=== PATIENT | female | born 1955 | race Caucasian/White ===

== ENCOUNTER 2017-02-17 09:41 | Day surgery (SDC) | payer BC ==
--- NOTE | 2017-02-17 13:13 | RAD ---
FOUR VIEWS LUMBAR SPINE: Date: 02-17-2017 Comparison: None. History: Back pain. FINDINGS: Minimal mid lumbar spine dextroscoliosis noted. There is a corticated osseous density along the anterior superior margin of the L4 vertebral body whi ch could reflect a lumbus vertebral body. There is multilevel disc space narrowing and anterior osteophyte formation, in the mid lumbar spine. No anterolisthesis of retrolisthesis is noted on flexion, neutral or extension imaging. There is mult ilevel lower lumbar spine facet hypertrophic change. IMPRESSION: Multilevel degenerative change with no acute osseous abnormality. POS: [facility]
--- NOTE | 2017-02-17 14:06 | MRI ---
MRI LUMBAR SPINE WITHOUT CONTRAST: Indication: Back pain. Comparison: Lumbar radiograph study 02-17-17. FINDINGS: Bone marrow signal intensity appears within normal limits. There is mild modic endplate degenerative change at L3-4. Conus terminates at L1. Visualized aspects of the retroperitoneum and paravertebral soft tissues appear within normal limits. L5-S1: There is a broad based disc bulge with a superimposed central protrusion without appreciable c entral canal narrowing. The loss of disc space height in additional to the broad based disc bulge and facet hypertrophy induces moderate to severe right and mild left neural foraminal narrowing. L4-5: There is facet joint degenerative change and broad based bulge inducing mild bilateral neural f oraminal narrowing. L3-4: There is a broad based bulge with facet hypertrophy inducing mild bilateral neural foraminal na rrowing, left greater than right. L2-3: There is a broad based bulge encroaching on the neural foramina. L1-2: There is mild facet joint degenerative changes without appreciable central canal or neural fora tomás narrowing. T12-L1: There is no appreciable central canal or neural foraminal narrowing. IMPRESSION: Multilevel spondylosis of the lumbar spine with multilevel neural foraminal narrowing most prominent at L5-S1. POS: [facility]
== END 2017-02-17 13:30 | disposition home or self-care (01) ==
LOC: SDC/OP 09:41
PROVIDERS: ATTEND Nurse Practitioner Family
DX: M54.16 Radiculopathy, lumbar region (principal); F32.9 Major depressive disorder, single episode, unspecified; R73.03 Prediabetes; Z79.84 Long term (current) use of oral hypoglycemic drugs; Z79.899 Other long term (current) drug therapy; Z88.8 Allergy status to other drugs, medicaments and biological substances; Z88.0 Allergy status to penicillin; Z98.890 Other specified postprocedural states
CPT/HCPCS: 72110; 72148

== ENCOUNTER 2017-02-18 08:26 | Outpatient (CLI) | payer BC | END 2017-02-18 08:27 | disposition home or self-care (01) | LOC: BICBD 08:26 | PROVIDERS: ATTEND Obstetrics & Gynecology | DX: Z12.31 Encounter for screening mammogram for malignant neoplasm of breast (principal); Z13.820 Encounter for screening for osteoporosis | CPT/HCPCS: 77063; 77067; 77080 ==

== ENCOUNTER 2017-04-15 23:17 | Emergency (ER) | payer BC ==
[2017-04-16] MEDS ORDERED: HYDROcodone/Acetaminophen 5/325 mg Tablet ONE (00:56)
== END 2017-04-16 01:01 | disposition home or self-care (01) ==
LOC: SCSER 23:17
DX: H66.92 Otitis media, unspecified, left ear (principal); H72.92 Unspecified perforation of tympanic membrane, left ear; F41.9 Anxiety disorder, unspecified; F32.9 Major depressive disorder, single episode, unspecified
CPT/HCPCS: 99283

== ENCOUNTER 2017-04-16 09:16 | Outpatient (CLI) | payer OTHER | END 2017-04-16 09:17 | disposition home or self-care (01) | LOC: CTENTCT 09:16 | PROVIDERS: ATTEND Otolaryngology Plastic Surgery within the Head & Neck | DX: J32.9 Chronic sinusitis, unspecified (principal) | CPT/HCPCS: 70486 ==

== ENCOUNTER 2017-10-07 10:54 | Outpatient (CLI) | payer OTHER, SELFPAY | END 2017-10-07 10:55 | disposition home or self-care (01) | LOC: MWLC DTY 10:54 | DX: Z00.00 Encounter for general adult medical examination without abnormal findings (principal) | CPT/HCPCS: 97802 ==

== ENCOUNTER 2018-02-19 08:16 | Outpatient (CLI) | payer MEDICARE, BC | END 2018-02-19 08:17 | disposition home or self-care (01) | LOC: BICMAMMO 08:16 | PROVIDERS: ATTEND Obstetrics & Gynecology | DX: Z12.31 Encounter for screening mammogram for malignant neoplasm of breast (principal) | CPT/HCPCS: 77063; 77067 ==

== ENCOUNTER 2018-07-07 09:32 | Day surgery (SDC) | payer MEDICARE, BC ==
[2018-07-06 08:30] VITALS: BMI 35.0
[2018-07-07] MEDS ORDERED: Oxymetazoline HCl 0.05% ( 15 ML ) ONE ×2 (11:10→12:44)
[2018-07-07 11:27] LABS: Hemoglobin 12.4 g/dL (12.0-16.0)
[2018-07-07 11:48] LABS: Anion Gap 13 mmol/L (10-20); BUN (Urea Nitrogen) 18 mg/dL (9.8-20.1); Calc. Creatinine Clearance 96 mL/min (70-130); Calcium 9.6 mg/dL (7.8-10.44); Carbon Dioxide 27 mmol/L (23-31); Chloride 103 mmol/L (98-107); Estimated GFR-MDRD 69; Glucose 95 mg/dL (80-115); Potassium 4.4 mmol/L (3.5-5.1); Sodium 139 mmol/L (136-145)
[2018-07-07] MEDS ORDERED: Lidocaine 1% w/Epinephrine 1:100K 20 ML VIAL ONE (12:44)
[2018-07-07] MEDS ORDERED: Fentanyl 100 MCG/2 ML VIAL ONE ×2 (12:47→14:19)
[2018-07-07] MEDS ORDERED: Morphine 4 MG/ML VIAL ONE (12:48)
[2018-07-07] MEDS ORDERED: Glycopyrrolate 0.2 MG/ML 5 ML SYRINGE ONE (15:18)
[2018-07-07] MEDS ORDERED: Lidocaine 1% PF 5 ML VIAL ONE (15:18)
[2018-07-07] MEDS ORDERED: Rocuronium Bromide 10 MG/ML (10ML VIAL) ONE (15:18)
[2018-07-07] MEDS ORDERED: Ondansetron PF 4 MG/2 ML Vial ONE (15:18)
[2018-07-07] MEDS ORDERED: PROPOFOL 200 MG/20 ML VIAL ONE (15:18)
[2018-07-07] MEDS ORDERED: Dexamethasone 20 MG/5 ML VIAL ONE (15:18)
--- NOTE | 2018-07-08 02:50 | OP ---
DATE OF PROCEDURE: 07/07/2018 PREOPERATIVE DIAGNOSES: 1. Chronic rhinosinusitis. 2. Bilateral inferior turbinate hypertrophy. 3. Chronic otitis media with effusion. 4. Bilateral eustachian tube dysfunction. POSTOPERATIVE DIAGNOSES: 1. Chronic rhinosinusitis. 2. Bilateral inferior turbinate hypertrophy. 3. Chronic otitis media with effusion. 4. Bilateral eustachian tube dysfunction. PROCEDURES PERFORMED: 1. Bilateral endoscopic sinus surgery, total ethmoidectomies. 2. Bilateral endoscopic sinus surgery maxillary antrostomies. 3. Bilateral endoscopic sinus surgery, frontal sinusotomies. 4. Bilateral inferior turbinate submucosal resection. 5. Bilateral nasopharyngoscopy and eustachian tube dilation. ESTIMATED BLOOD LOSS: 10 mL. COMPLICATIONS: None. ANESTHESIA: GETA. DESCRIPTION OF PROCEDURE: The patient was taken to the operating room and placed supine on table, general endotracheal anesthesia was obtained by the anesthesia staff. Tube was secured in the left lower lip. The patient was then placed in a beach chair position. Afrin pledgets were placed in the nasal cavity as the patient was prepped and draped for standard nasal procedure. Following this, Afrin pledgets were removed. A 0-degree endoscope was advanced in the nasal cavity. 1% lidocaine with 1:100,000 epinephrine was then injected into the inferior turbinates, middle turbinates, and lateral nasal wall bilaterally. Following this, the 0-degree endoscope was advanced in the middle meatus. The middle turbinates were gently medialized using a Wallace elevator bilaterally. Following this, the uncinate process was then identified, it was anteriorly fractured using a ball-ended probe. Following this, the uncinate process was removed bilaterally using a 0-degree microdebrider and the up-biting Blakesley forceps bilaterally. Following this, the natural maxillary sinus ostia was visualized and was widened using the curved microdebrider blade and a straight Blakesley forceps bilaterally. Following this, the ethmoidal bulla was identified and was punctured on its medial and inferior aspects and was removed using the microdebrider and up-biting Blakesley forceps bilaterally. Following this, the grand lamella was identified and punctured into the posterior ethmoidal cells, working from posterior to anterior, the ethmoidal cells were opened in a mucosal sparing technique bilaterally using the 0-degree microdebrider and the up-biting Blakesley forceps bilaterally. Following this, 45-degree endoscope along with the 40-degree microdebrider blade were further used to open the frontal recess and anterior ethmoidal cells bilaterally. The frontal sinus ostia was identified bilaterally and was widened using the curved microdebrider bilaterally. Following this, the nasal cavity was irrigated. Mirapex was placed within the middle meatus. Following this, the inferior turbinates were punctured on the anterior and inferior aspects with the submucosal microdebrider and submucosal resection was performed of the anterior and inferior portions of the inferior turbinates bilaterally. Following this, the 0-degree endoscope was advanced into the posterior nasal cavity. Eustachian tube orifice was examined. There was thick mucoid drainage from this area and hypertrophic mucosa identified. A balloon dilation device was then inserted into the eustachian tube and allowed to stay inflated for 2 minutes and 12 atmospheres of pressure bilaterally. The balloon was then deflated and removed. The patient tolerated the procedure well. Job ID: [id number]
--- NOTE | 2018-07-10 13:30 | EKG ---
Test Reason : PREOP Blood Pressure : / mmHG Vent. Rate : 067 BPM Atrial Rate : 067 BPM P-R Int : 146 ms QRS Dur : 078 ms QT Int : 420 ms P-R-T Axes : 063 022 037 degrees QTc Int : 443 ms Normal sinus rhythm Normal ECG No previous ECGs available Confirmed by DR. Erin JOHNSON ([id number]) on 07/10/2018 1:30:38 PM Referred By: ALFREDITO Confirmed By:DR. Erin JOHNSON
== END 2018-07-07 16:42 | disposition home or self-care (01) ==
LOC: SDC 09:32
PROVIDERS: ATTEND Otolaryngology Plastic Surgery within the Head & Neck
PROC: 097G8ZZ Dilation of Left Eustachian Tube, Via Natural or Artificial Opening Endoscopic (ICD-10-PCS; principal; 2018-07-07)
PROC: 097F8ZZ Dilation of Right Eustachian Tube, Via Natural or Artificial Opening Endoscopic (ICD-10-PCS; 2018-07-07)
PROC: 09TL8ZZ Resection of Nasal Turbinate, Via Natural or Artificial Opening Endoscopic (ICD-10-PCS; 2018-07-07)
DX: J32.4 Chronic pansinusitis (principal); J34.3 Hypertrophy of nasal turbinates; H65.493 Other chronic nonsuppurative otitis media, bilateral; H69.83 Other specified disorders of Eustachian tube, bilateral; F32.9 Major depressive disorder, single episode, unspecified; R73.03 Prediabetes; Z88.8 Allergy status to other drugs, medicaments and biological substances
CPT/HCPCS: 36415; 80048; 85014; 85018; 93005; 93010; J1100; J2001; J2270; J2405; J2704; J3010

== ENCOUNTER 2019-03-04 10:44 | Day surgery (SDC) | payer MEDICARE, BC ==
[2019-03-03 15:38] VITALS: BMI 37.5
[2019-03-04] MEDS ORDERED: Propofol 500 MG/50 ML VIAL ONE (11:31)
[2019-03-04] MEDS ORDERED: Midazolam HCl 2 mg/2 ml Vial ONE ×2 (11:31)
--- NOTE | 2019-03-04 12:20 | MRI ---
MRI lumbar spine noncontrast HISTORY: Low back pain. Right leg radiculopathy. COMPARISON: 02/17/2017. FINDINGS: Conus medullaris has a normal appearance. Vertebral body heights and alignment are maintain ed. Desiccation of all of the intervertebral discs. Discogenic endplate changes in the bone marrow around the lowest 3 levels. There is increased T2 signal and diminished T1 signal within the left L5 pedicle and to a lesser extent the left L4 pedicle. T12-L1, L1-2: Mild osteophytosis. Central canal and neural foramina are patent. L2-3: Minimal degenerative retrolisthesis. Minimal disc bulge. Osteophytosis of the facets. Thecal sa c is patent. Mild bilateral foraminal stenoses. L3-4: Disc space narrowing. Posterior disc bulge. Osteophytosis of the facets is greater on the left than the right. The thecal sac remains patent. Moderate right and severe left foraminal stenoses. L4-5: Posterior disc bulge and circumferential degenerative changes. Thecal sac is patent. Moderate b ilateral foraminal stenoses. L5-S1: Mild disc bulge. Thecal sac is patent. Disc bulge and prominent osteophytosis result in very s evere stenosis of the right neural foramen. Moderate stenosis left neural foramen. IMPRESSION: Multilevel degenerative changes throughout the lumbar spine as detailed above, including very severe stenosis of the right neural foramen at the lumbosacral junction. Clinical correlation regarding the right L5 dermatome is required. Edematous reaction within the bone marrow at the left L4 and L5 pedicles.
--- NOTE | 2019-03-04 13:03 | RAD ---
4 VIEWS LUMBAR SPINE: Date: 03/04/2019 COMPARISON: None. HISTORY: Back pain. FINDINGS: Five lumbar-type vertebral bodies are present with intact pedicles on frontal imaging. There is mild dextroscoliosis within the mid lumbar spine. There is disc space narrowing with degenerative end plat e change and anterior osteophyte formation at L2-3, L3-4, L4-5, and L5-S1, most prominent at the L5-S 1 level. Multilevel lower lumbar spine facet hypertrophy. No anterolisthesis or retrolisthesis is joy dent on the neutral, flexion, or extension lateral views. IMPRESSION: Degenerative change. Mild dextroscoliosis of the lumbar spine. No acute fracture. POS: [facility]
== END 2019-03-04 12:59 | disposition home or self-care (01) ==
LOC: SDC/OP 10:44
PROVIDERS: ATTEND Nurse Practitioner Family
DX: M47.26 Other spondylosis with radiculopathy, lumbar region (principal); M48.061 Spinal stenosis, lumbar region without neurogenic claudication; M41.86 Other forms of scoliosis, lumbar region; Z79.84 Long term (current) use of oral hypoglycemic drugs; Z79.899 Other long term (current) drug therapy; Z88.0 Allergy status to penicillin; Z88.8 Allergy status to other drugs, medicaments and biological substances
CPT/HCPCS: 72120; 72148; J2250; J2704

== ENCOUNTER 2019-07-29 06:30 | Outpatient (CLI) | payer MEDICARE, BC, OTHER ==
[2019-07-29 11:10] LABS: Hemoglobin 12.5 g/dL (12.0-16.0); Mean Corpuscular Hemoglobin 27.3 pg (27.0-31.0); Mean Corpuscular Volume 85.2 fL (78.0-98.0); Mean Platelet Volume 9.1 fL (7.4-10.4); Platelet Count 312 thou/uL (130-400); RBC Distribution Width 13.1 % (11.5-14.5); Red Blood Cell (RBC) Count 4.59 mill/uL (4.20-5.40); White Blood Cell (WBC) Count 8.2 thou/uL (4.8-10.8)
[2019-07-29 11:51] LABS: Anion Gap 14 mmol/L (10-20); BUN (Urea Nitrogen) 20 mg/dL (9.8-20.1); Calc. Creatinine Clearance 0 mL/min (70-130); Carbon Dioxide 27 mmol/L (23-31); Chloride 104 mmol/L (98-107); Estimated GFR-MDRD 57; Glucose 113 mg/dL (80-115); Potassium 4.8 mmol/L (3.5-5.1); Sodium 140 mmol/L (136-145)
[2019-07-29 12:23] LABS: PTT 32.6 sec (22.9-36.1)
[2019-07-30 12:14] LABS: SARS-CoV-2 MS2 Positive; SARS-CoV-2 N Gene Negative; SARS-CoV-2 S Gene Negative; SARS-CoV-2 orf1ab Negative
--- NOTE | 2019-08-01 11:45 | EKG ---
Test Reason : PREOP Blood Pressure : / mmHG Vent. Rate : 066 BPM Atrial Rate : 066 BPM P-R Int : 146 ms QRS Dur : 082 ms QT Int : 428 ms P-R-T Axes : 068 031 050 degrees QTc Int : 448 ms Normal sinus rhythm Normal ECG Confirmed by LIDYA DICK ([id number]) on 08/01/2019 11:44:37 AM Referred By: DISHA Confirmed By:LIDYA DICK
== END 2019-07-29 06:31 | disposition home or self-care (01) ==
LOC: LABBT 06:30
PROVIDERS: ATTEND Surgery
DX: Z01.818 Encounter for other preprocedural examination (principal); Z11.59 Encounter for screening for other viral diseases; M51.16 Intervertebral disc disorders with radiculopathy, lumbar region; M48.061 Spinal stenosis, lumbar region without neurogenic claudication
CPT/HCPCS: 80048; 85027; 85610; 85730; 93005; U0003; 87635; 93010

== ENCOUNTER 2019-08-02 09:28 | Day surgery (SDC) | payer MEDICARE, BC ==
[2019-07-28 10:35] VITALS: BMI 36.6
[2019-08-02] MEDS ORDERED: Thrombin 5000 UNITS/5 ML VIAL ONE (10:00)
[2019-08-02] MEDS ORDERED: Fentanyl 100 MCG/2 ML VIAL ONE ×3 (11:11→14:13)
[2019-08-02] MEDS ORDERED: Lidocaine 1% PF 5 ML VIAL ONE (11:13)
[2019-08-02] MEDS ORDERED: Rocuronium Bromide 10 MG/ML (10ML VIAL) ONE (11:13)
[2019-08-02] MEDS ORDERED: Metoclopramide HCl 10 MG/2 ML VIAL ONE (11:13)
[2019-08-02] MEDS ORDERED: Labetalol HCl 100 MG/20 ML VIAL ONE (11:13)
[2019-08-02] MEDS ORDERED: Ondansetron PF 4 MG/2 ML Vial ONE (11:13)
[2019-08-02] MEDS ORDERED: PROPOFOL 200 MG/20 ML VIAL ONE (11:13)
[2019-08-02] MEDS ORDERED: Glycopyrrolate 0.2 MG/ML 5 ML SYRINGE ONE (11:13)
[2019-08-02] MEDS ORDERED: HYDROmorphone 2 MG/ML VIAL SLOW IVP PRN (12:45)
[2019-08-02] MEDS ORDERED: Morphine Sulfate 2 MG/ML SYRINGE SLOW IVP PRN (12:45)
[2019-08-02] MEDS ORDERED: Promethazine HCl 25 MG/ML VIAL IM PRN (12:45)
[2019-08-02] MEDS ORDERED: Ondansetron HCl/PF 4 MG/2 ML Vial IVP PRN (12:45)
[2019-08-02] MEDS ORDERED: PACU-Morphine 4MG/ML VIAL SLOW IVP PRN (12:45)
[2019-08-02] MEDS ORDERED: Promethazine HCl 25 MG/ML VIAL SLOW IVP PRN (12:45)
[2019-08-02] MEDS ORDERED: SUGAMMADEX SODIUM 200 MG/2 ML VIAL ONE (13:30)
[2019-08-02] MEDS ORDERED: HYDROcodone/Acetaminophen 7.5/325 mg Tablet PO PRN (13:38)
[2019-08-02] MEDS ORDERED: Acetaminophen 325 MG TAB PO PRN (13:38)
[2019-08-02] MEDS ORDERED: Milk Of Magnesia 30 ML UDCUP PO PRN (13:38)
[2019-08-02] MEDS ORDERED: Acetaminophen/Codeine 30-300mg Tablet PO PRN (13:38)
[2019-08-02] MEDS ORDERED: Bisacodyl 10 MG SUPP PR PRN (13:38)
[2019-08-02] MEDS ORDERED: Morphine 2 MG/ML SYRINGE SLOW IVP PRN (13:38)
[2019-08-02] MEDS ORDERED: traMADol HCl 50 MG TAB PO PRN (13:38)
[2019-08-02] MEDS ORDERED: Ondansetron PF 4 MG/2 ML Vial IVP PRN (13:38)
[2019-08-02] MEDS ORDERED: tiZANidine HCl 4 MG TAB PO PRN (13:38)
[2019-08-02] MEDS ORDERED: Mag-Al 1200 mg/1200 mg/30 ML UDCUP PO PRN (13:38)
[2019-08-02] MEDS ORDERED: Fleet Enema 133 ML BOT PR PRN (13:38)
[2019-08-02] MEDS ORDERED: HYDROmorphone 0.5 MG/0.5 ML SYRINGE ONE (13:58)
[2019-08-02] MEDS: CEFAZOLIN 2 GM in Premix Bag 1 BAG IVPB SCH (19:25)
[2019-08-02] MEDS: metFORMIN 500 MG TAB PO SCH (19:25)
[2019-08-02] MEDS: Sodium Chloride 0.9% 1,000 ML IV SCH (19:26)
[2019-08-02] MEDS ORDERED: Rosuvastatin 5 MG TAB PO SCH (21:00)
[2019-08-02] MEDS: Pregabalin 50 MG CAP PO SCH (21:15)
[2019-08-03] MEDS: CEFAZOLIN 2 GM in Premix Bag 1 BAG IVPB SCH (02:02)
[2019-08-03] MEDS: Sodium Chloride 0.9% 1,000 ML IV SCH (03:22)
--- NOTE | 2019-08-03 06:42 | OP ---
DATE OF PROCEDURE: 08/02/2019 AUTO MECHANIC: Alexa Moser PA-C PREPROCEDURE DIAGNOSES: Low back and right and left lower extremity pain with lumbar disk extrusion, lumbar radiculopathy. POSTPROCEDURE DIAGNOSES: Low back and right and left lower extremity pain with lumbar disk extrusion, lumbar radiculopathy. PROCEDURES PERFORMED: 1. Left L3-L4 hemilaminotomy, foraminotomy. 2. Right L5-S1 hemilaminotomy, foraminotomy. 3. Right L5-S1 trans-facet diskectomy for decompression of the exiting right L5 nerve root. 4. Use of operative microscope for microdissection. DESCRIPTION OF PROCEDURE: After informed consent was obtained from the patient, the patient was brought to the OR. Proper patient, pause, and identification were carried out. She was positioned prone on the OR table. All appropriate points were padded. We identified the L3-L4, L5-S1 dorsal spines and a linear bridget was made over this region. This area sterilely cleansed, prepared and draped. Proper patient, pause, and identification were carried out. The wound was then opened with combination of sharp, monopolar, and blunt dissection. Left L3-L4 segment was exposed. Localization film confirmed area of interest. We then performed a left L3-L4 hemilaminotomy, foraminotomy with excellent decompression of the traversing left L4 nerve root. The microscope was used for microdissection. We then performed a right L5-S1 hemilaminotomy, foraminotomy and right L5-S1 trans-facet diskectomy with decompression of the exiting right L5 nerve root and removal of disk material in the foramen extraforaminally with excellent decompression of the right L5 and right S1 nerve roots. Copious irrigation occurred throughout as did maximizing hemostasis. The wound was then closed in anatomic layers following sprinkling of vancomycin powder. The patient emerged from anesthesia. Job ID: [id number]
[2019-08-03 07:59] VITALS: TEMP 98.2
[2019-08-03] MEDS ORDERED: Ketorolac Tromethamine 30 MG/ML VIAL IVP PRN (08:28)
[2019-08-03] MEDS ORDERED: Dexamethasone 10 MG/ML VIAL SLOW IVP SCH ×2 (08:30→09:15)
[2019-08-03] MEDS ORDERED: Ketorolac Tromethamine 30 MG/ML VIAL ONE (08:33)
[2019-08-03] MEDS: Pregabalin 50 MG CAP PO SCH (08:39)
[2019-08-03] MEDS: metFORMIN 500 MG TAB PO SCH (08:51)
[2019-08-03] MEDS ORDERED: Prevnar 13-Val Conj/PF 0.5 ML SYRINGE IM ONE (09:00)
[2019-08-03] MEDS ORDERED: FLUoxetine HCl 20 MG CAP PO SCH (09:00)
[2019-08-03] MEDS ORDERED: Loratadine 10 MG TAB PO SCH (09:00)
[2019-08-03] MEDS ORDERED: Ketorolac Tromethamine 30 MG/ML VIAL IVP SCH (09:15)
--- NOTE | 2019-08-03 09:40 | PRG ---
DATE OF SERVICE: 08/03/2019 Ms. Oh is postop day 1 from lumbar decompression. She has right L5 radiculitis this morning and is doing well otherwise. We will initiate Toradol and Decadron and see how she is doing. Job ID: [id number]
[2019-08-03 11:39] VITALS: BP 109/71
== END 2019-08-03 13:11 | disposition home or self-care (01) ==
LOC: SDC 09:28 → SURG B 13:38 → SDC 08-03 13:11
PROVIDERS: ATTEND Surgery
PROC: 01NB0ZZ Release Lumbar Nerve, Open Approach (ICD-10-PCS; principal; 2019-08-02)
PROC: 0SB40ZZ Excision of Lumbosacral Disc, Open Approach (ICD-10-PCS; 2019-08-02)
DX: M51.16 Intervertebral disc disorders with radiculopathy, lumbar region (principal); M48.061 Spinal stenosis, lumbar region without neurogenic claudication; Z79.82 Long term (current) use of aspirin; Z79.84 Long term (current) use of oral hypoglycemic drugs; Z79.899 Other long term (current) drug therapy; Z88.0 Allergy status to penicillin; Z88.8 Allergy status to other drugs, medicaments and biological substances
CPT/HCPCS: 36416; 76000; J0690; J1100; J1170; J1885; J2001; J2405; J2704; J2765; J3010; J3370; J3490

== ENCOUNTER 2020-01-27 07:25 | Outpatient (CLI) | payer MEDICARE, BC ==
--- NOTE | 2020-01-27 13:55 | NM ---
NUCLEAR MEDICINE GASTRIC EMPTYING EXAM: HISTORY: A 64-year-old female with nausea and abdominal pain. TECHNIQUE: A nuclear medicine gastric emptying exam was performed after administration of 2.1 mCi of Technetium 99m sulfur colloid mixed with eggs. FINDINGS: No gastroesophageal reflux was seen during the examination. 26% emptying is seen at 22 minutes. 43% emptying is seen at 58 minutes. 56% emptying is seen at 112 minutes. 63% emptying is seen at 179 m inutes. 76% emptying is seen at 246 minutes. The T-1/2 gastric emptying is 88 minutes. IMPRESSION: Normal gastric emptying exam. POS: [facility]
== END 2020-01-27 07:26 | disposition home or self-care (01) ==
LOC: NM 07:25
PROVIDERS: ATTEND Internal Medicine
DX: R11.0 Nausea (principal); R68.81 Early satiety; R10.13 Epigastric pain
CPT/HCPCS: 78264; A9541

== ENCOUNTER 2020-07-17 10:03 | Outpatient (CLI) | payer MEDICARE, BC ==
[2020-07-17 20:38] LABS: SARS-CoV-2 PCR by NAA Not Detected (NotDetected)
== END 2020-07-17 10:04 | disposition home or self-care (01) ==
LOC: LABBT 10:03
PROVIDERS: ATTEND Surgery
DX: Z01.812 Encounter for preprocedural laboratory examination (principal); M54.5 Low back pain; Z20.822 Contact with and (suspected) exposure to COVID-19
CPT/HCPCS: U0003; U0005

== ENCOUNTER 2020-07-20 09:52 | Day surgery (SDC) | payer MEDICARE, BC ==
[2020-07-19 12:59] VITALS: BMI 32.2
[2020-07-20] MEDS ORDERED: Lidocaine 1% PF 5 ML VIAL ONE (12:15)
[2020-07-20] MEDS ORDERED: Ondansetron PF 4 MG/2 ML Vial ONE (12:15)
[2020-07-20] MEDS ORDERED: PROPOFOL 200 MG/20 ML VIAL ONE (12:15)
== END 2020-07-20 14:10 | disposition home or self-care (01) ==
LOC: SDC/OP 09:52
PROVIDERS: ATTEND Surgery
DX: M47.26 Other spondylosis with radiculopathy, lumbar region (principal); M85.88 Other specified disorders of bone density and structure, other site; M54.41 Lumbago with sciatica, right side; E11.9 Type 2 diabetes mellitus without complications; E78.5 Hyperlipidemia, unspecified; K21.9 Gastro-esophageal reflux disease without esophagitis; F40.240 Claustrophobia; Z79.82 Long term (current) use of aspirin; Z79.84 Long term (current) use of oral hypoglycemic drugs; Z79.899 Other long term (current) drug therapy; Z88.0 Allergy status to penicillin; Z98.890 Other specified postprocedural states
CPT/HCPCS: 72100; 72148; J2405; J2704

== ENCOUNTER 2022-06-16 09:47 | Day surgery (SDC) | payer MEDICARE, BC ==
[2022-06-12 15:46] VITALS: BMI 28.3
[2022-06-16] MEDS ORDERED: Famotidine/PF 20 mg/2ml Vial ONE (11:57)
[2022-06-16] MEDS ORDERED: fentaNYL 50 mcg/mL 1 mL Vial ONE (11:58)
[2022-06-16] MEDS ORDERED: Lidocaine 1% PF 5 ML VIAL ONE (13:00)
[2022-06-16] MEDS ORDERED: Ondansetron PF 4 MG/2 ML Vial ONE (13:00)
[2022-06-16] MEDS ORDERED: PROPOFOL 200 MG/20 ML VIAL ONE (13:00)
== END 2022-06-16 15:14 | disposition home or self-care (01) ==
LOC: MRI 09:47 → EDSTATUS 12:00 → MRI 15:14
PROVIDERS: ATTEND Specialist
DX: M50.11 Cervical disc disorder with radiculopathy, high cervical region (principal); M47.22 Other spondylosis with radiculopathy, cervical region; M48.02 Spinal stenosis, cervical region; M47.815 Spondylosis without myelopathy or radiculopathy, thoracolumbar region; M47.26 Other spondylosis with radiculopathy, lumbar region; M51.16 Intervertebral disc disorders with radiculopathy, lumbar region; M48.061 Spinal stenosis, lumbar region without neurogenic claudication; M51.37 Other intervertebral disc degeneration, lumbosacral region; M48.07 Spinal stenosis, lumbosacral region; R73.03 Prediabetes; M70.62 Trochanteric bursitis, left hip; M46.1 Sacroiliitis, not elsewhere classified; Z79.84 Long term (current) use of oral hypoglycemic drugs; Z79.899 Other long term (current) drug therapy; Z88.0 Allergy status to penicillin; Z88.8 Allergy status to other drugs, medicaments and biological substances
CPT/HCPCS: 72141; 72148; J3010; J2405; J2704; S0028

== ENCOUNTER 2022-06-27 09:54 | Outpatient (CLI) | payer MEDICARE, BC ==
[2022-06-27 11:25] LABS: Hemoglobin 11.8 g/dL (12.0-15.5)
[2022-06-27 11:36] LABS: Anion Gap 14 mmol/L (10-20); BUN (Urea Nitrogen) 29 mg/dL (9.8-20.1); Calc. Creatinine Clearance 0 mL/min (70-130); Carbon Dioxide 25 mmol/L (23-31); Chloride 105 mmol/L (98-107); Estimated GFR 59; Glucose 89 mg/dL (80-115); Potassium 4.5 mmol/L (3.5-5.1); Sodium 139 mmol/L (136-145)
== END 2022-06-27 09:55 | disposition home or self-care (01) ==
LOC: LABBT 09:54
PROVIDERS: ATTEND Otolaryngology Plastic Surgery within the Head & Neck
DX: Z01.812 Encounter for preprocedural laboratory examination (principal); S09.21XA Traumatic rupture of right ear drum, initial encounter
CPT/HCPCS: 80048; 85014; 85018

== ENCOUNTER 2024-02-12 09:38 | Outpatient (CLI) | payer MEDICARE | END 2024-02-12 09:39 | disposition home or self-care (01) | LOC: BICMAMMO 09:38 | PROVIDERS: ATTEND Internal Medicine | DX: M85.89 Other specified disorders of bone density and structure, multiple sites (principal) | CPT/HCPCS: 77080 ==

== ENCOUNTER 2024-02-22 09:50 | Outpatient (CLI) | payer MEDICARE ==
[2024-02-19 15:31] VITALS: BMI 34.2
[2024-02-22 11:18] LABS: Anion Gap 14 mmol/L (10-20); BUN (Urea Nitrogen) 22 mg/dL (9.8-20.1); Calc. Creatinine Clearance 68 mL/min (70-130); Calcium 9.4 mg/dL (7.8-10.44); Carbon Dioxide 24 mmol/L (23-31); Chloride 106 mmol/L (98-107); Estimated GFR 60; Glucose 105 mg/dL (83-110); Sodium 139 mmol/L (136-145)
[2024-02-22] MEDS ORDERED: PHENYLEPHRINE-NS 100 MCG/ML 10 ML SYRINGE ONE (11:28)
[2024-02-22] MEDS ORDERED: PROPOFOL 20 ML ONE ×2 (11:28→11:57)
[2024-02-22] MEDS ORDERED: Ondansetron PF 4 MG/2 ML Vial ONE (11:57)
[2024-02-22] MEDS ORDERED: Lidocaine 2% PF 5 ML VIAL ONE (12:30)
[2024-02-22] MEDS ORDERED: Dexamethasone 20 MG/5 ML VIAL ONE (12:30)
== END 2024-02-22 14:17 | disposition home or self-care (01) ==
LOC: MRI 09:50
PROVIDERS: ATTEND Nurse Practitioner Family
DX: M47.26 Other spondylosis with radiculopathy, lumbar region (principal); M51.16 Intervertebral disc disorders with radiculopathy, lumbar region; M47.817 Spondylosis without myelopathy or radiculopathy, lumbosacral region
CPT/HCPCS: 72148; 80048; J2405; J2704; J1100

== ENCOUNTER 2024-03-18 08:51 | Outpatient (CLI) | payer MEDICARE | END 2024-03-18 08:52 | disposition home or self-care (01) | LOC: BICCT 08:51 | PROVIDERS: ATTEND Surgery | DX: M43.06 Spondylolysis, lumbar region (principal); M47.816 Spondylosis without myelopathy or radiculopathy, lumbar region; M51.369 Other intervertebral disc degeneration, lumbar region without mention of lumbar back pain or lower extremity pain; M48.061 Spinal stenosis, lumbar region without neurogenic claudication; M47.817 Spondylosis without myelopathy or radiculopathy, lumbosacral region; M48.07 Spinal stenosis, lumbosacral region; M25.78 Osteophyte, vertebrae | CPT/HCPCS: 72131 ==

== ENCOUNTER 2024-03-31 09:07 | Outpatient (CLI) | payer MEDICARE ==
[2024-03-31 10:06] LABS: #Basophils 0.04 10x3/uL (0.0-0.2); %Basophils 0.6 % (0.0-1.0); %Eosinophils 1.2 % (0.0-10.0); %Lymphocytes 25.1 % (21.0-51.0); %Monocytes 6.3 % (0.0-10.0); %Neutrophils 66.7 % (42.0-75.0); Hematocrit 38.4 % (36.0-47.0); Hemoglobin 12.5 g/dL (12.0-16.0); Mean Corpuscular HGB CONC 32.6 g/dL (32.0-36.0); Mean Corpuscular Hemoglobin 26.7 pg (27.0-31.0); Mean Corpuscular Volume 82.1 fL (78.0-98.0); Platelet Count 304 10x3/uL (130-400); RBC Distribution Width 14.9 % (11.5-14.5); Red Blood Cell (RBC) Count 4.68 mill/uL (4.20-5.40)
[2024-03-31 10:33] LABS: Hemoglobin A1c 5.9 % (4.0-6.0)
[2024-03-31 10:34] LABS: Anion Gap 12 mmol/L (10-20); BUN (Urea Nitrogen) 16 mg/dL (9.8-20.1); Calc. Creatinine Clearance 0 mL/min (70-130); Calcium 9.1 mg/dL (7.8-10.44); Carbon Dioxide 25 mmol/L (23-31); Chloride 107 mmol/L (98-107); Estimated GFR 58; Glucose 101 mg/dL (83-110); Potassium 4.2 mmol/L (3.5-5.1); Sodium 140 mmol/L (136-145)
[2024-03-31 10:50] LABS: INR-International Normal Ratio 1.1; Prothrombin Time 13.8 sec (12.0-14.7)
[2024-03-31 10:51] LABS: PTT 26.7 sec (22.9-36.1)
== END 2024-03-31 09:08 | disposition home or self-care (01) ==
LOC: LABBT 09:07
PROVIDERS: ATTEND Surgery
DX: Z01.818 Encounter for other preprocedural examination (principal); M54.16 Radiculopathy, lumbar region; M43.06 Spondylolysis, lumbar region; M48.061 Spinal stenosis, lumbar region without neurogenic claudication
CPT/HCPCS: 80048; 83036; 85025; 85610; 85730; 93005; 93010

== ENCOUNTER 2024-04-07 06:22 | Inpatient (IN) | payer MEDICARE ==
[2024-03-31 09:22] VITALS: BMI 33.3
[~2024-04-07 06:22] MED LIST: Thrombin 5000 UNITS/5 ML VIAL ONE; Vancomycin 1 GM VIAL ONE
[2024-04-07] MEDS ORDERED: Ondansetron PF 4 MG/2 ML Vial ONE (06:58)
[2024-04-07] MEDS ORDERED: Rocuronium Bromide 10 MG/ML (10ML VIAL) ONE (06:58)
[2024-04-07] MEDS ORDERED: fentaNYL PF 100 MCG/2 ML SYRINGE ONE ×2 (06:58→08:43)
[2024-04-07] MEDS ORDERED: Dexamethasone 4 mg/ml Vial ONE (06:58)
[2024-04-07] MEDS ORDERED: Lidocaine 1% PF 5 ML VIAL ONE (06:58)
[2024-04-07] MEDS ORDERED: PROPOFOL 40 ML ONE (06:58)
[2024-04-07] MEDS ORDERED: CEFAZOLIN 2 GM VIAL ONE (06:59)
[2024-04-07] MEDS ORDERED: SUGAMMADEX SODIUM 200 MG/2 ML VIAL ONE (06:59)
[2024-04-07] MEDS ORDERED: Dexmedetomidine 200 MCG/2 ML VIAL ONE (07:01)
[2024-04-07] MEDS ORDERED: PHENYLEPHRINE-NS 100 MCG/ML 10 ML SYRINGE ONE (07:30)
[2024-04-07] MEDS ORDERED: ePHEDrine Sulfate 50 MG/10 ML VIAL ONE (07:59)
[2024-04-07] MEDS ORDERED: Glycopyrrolate 0.2 MG/ML 5 ML SYRINGE ONE (08:19)
[2024-04-07] MEDS ORDERED: CEFAZOLIN 1 GM VIAL ONE (11:31)
[2024-04-07] MEDS ORDERED: HYDROmorphone 2 MG/ML VIAL ONE (11:59)
[2024-04-07] MEDS ORDERED: diphenhydrAMINE 50 MG/ML VIAL IM PRN (12:07)
[2024-04-07] MEDS ORDERED: diphenhydrAMINE 50 MG/ML VIAL IVP PRN (12:07)
[2024-04-07] MEDS ORDERED: FENTANYL 500 MCG/10 ML VIAL 2,000 MCG in Sodium Chloride 0.9% 60 ML IV PRN (12:07)
[2024-04-07] MEDS ORDERED: Ondansetron PF 4 MG/2 ML Vial IVP PRN (12:07)
[2024-04-07] MEDS ORDERED: diphenhydrAMINE 25 MG CAP PO PRN (12:07)
[2024-04-07] MEDS ORDERED: Promethazine HCl 25 MG/ML VIAL IM PRN ×2 (12:07→12:08)
[2024-04-07] MEDS ORDERED: Naloxone HCl 0.4 mg/ml Vial IV PRN (12:07)
[2024-04-07] MEDS ORDERED: Ondansetron HCl/PF 4 MG/2 ML Vial IVP PRN (12:08)
[2024-04-07] MEDS ORDERED: HYDROmorphone 2 MG/ML VIAL SLOW IVP PRN (12:08)
[2024-04-07] MEDS ORDERED: [UNRECOGNIZED DRUG - OTHER] FS SCH (12:15)
[2024-04-07] MEDS ORDERED: Milk Of Magnesia 30 ML UDCUP PO PRN (13:20)
[2024-04-07] MEDS ORDERED: hydrALAZINE 20 MG/ML VIAL SLOW IVP PRN (13:23)
[2024-04-07] MEDS ORDERED: Benzocaine/Menthol 1 LOZ LOZ PO PRN (13:23)
[2024-04-07] MEDS ORDERED: tiZANidine HCl 4 MG TAB PO PRN (13:23)
[2024-04-07] MEDS ORDERED: fentaNYL 50 mcg/mL 1 mL Vial ONE ×2 (13:32→13:48)
[2024-04-07] MEDS ORDERED: FENTANYL ONE (14:16)
[2024-04-07] MEDS ORDERED: CADD ONE (14:16)
[2024-04-07] MEDS: CEFAZOLIN 2 GM in Sodium Chloride 0.9% 100 ML IVPB SCH (17:48)
[2024-04-07] MEDS: Sodium Chloride 0.9% 1,000 ML IV SCH (20:13)
[2024-04-07] MEDS: metFORMIN 500 MG TAB PO SCH (20:13)
[2024-04-07] MEDS: Pantoprazole 40 MG DR.TAB PO SCH (20:13)
[2024-04-07] MEDS: Rosuvastatin 10 MG TAB PO SCH (20:13)
[2024-04-08 05:46] LABS: #Basophils Less than 0.03 10x3/uL (0.0-0.2); %Basophils 0.2 % (0.0-1.0); %Eosinophils 0.3 % (0.0-10.0); %Lymphocytes 16.7 % (21.0-51.0); %Monocytes 6.9 % (0.0-10.0); %Neutrophils 75.5 % (42.0-75.0); Hematocrit 32.4 % (36.0-47.0); Hemoglobin 10.5 g/dL (12.0-16.0); Mean Corpuscular HGB CONC 32.4 g/dL (32.0-36.0); Mean Corpuscular Hemoglobin 26.5 pg (27.0-31.0); Mean Corpuscular Volume 81.8 fL (78.0-98.0); Mean Platelet Volume 9.9 fL (7.4-10.4); Platelet Count 279 10x3/uL (130-400); RBC Distribution Width 14.9 % (11.5-14.5); Red Blood Cell (RBC) Count 3.96 mill/uL (4.20-5.40)
[2024-04-08 06:23] LABS: Anion Gap 15 mmol/L (10-20); BUN (Urea Nitrogen) 18 mg/dL (9.8-20.1); Calc. Creatinine Clearance 58 mL/min (70-130); Calcium 8.3 mg/dL (7.8-10.44); Carbon Dioxide 23 mmol/L (23-31); Chloride 104 mmol/L (98-107); Estimated GFR 51; Glucose 113 mg/dL (83-110); Potassium 3.7 mmol/L (3.5-5.1); Sodium 138 mmol/L (136-145)
[2024-04-08] MEDS ORDERED: Morphine 2 MG/ML VIAL SLOW IVP PRN (07:49)
[2024-04-08] MEDS ORDERED: HYDROcodone/Acetaminophen 5/325 mg Tablet PO PRN (07:49)
[2024-04-08] MEDS ORDERED: Polyethylene Glycol 3350 17 GM Packet PO PRN (07:50)
[2024-04-08] MEDS: Bupropion 150 MG SR.TAB PO SCH (08:43)
[2024-04-08] MEDS: Sertraline 100 MG TAB PO SCH (08:43)
[2024-04-08] MEDS: Loratadine 10 MG TAB PO SCH (08:44)
[2024-04-08] MEDS: Docusate 100 MG CAP PO SCH (09:40)
[2024-04-08] MEDS: Acetaminophen/Codeine 30-300mg Tablet PO PRN (09:40)
[2024-04-08] MEDS: Diazepam 5 MG TAB PO PRN (18:15)
[2024-04-09] MEDS: Ketorolac Tromethamine 30 MG (1 mL) VIAL IVP PRN (01:20)
[2024-04-09] MEDS: HYDROcodone/Acetaminophen 10/325 mg Tablet PO PRN (14:37)
[2024-04-12] MEDS: Acetaminophen 325 MG TAB PO PRN (14:20)
[2024-04-13 14:11] VITALS: BP 104/68; TEMP 98.4
== END 2024-04-13 14:13 | disposition home health service (06) | DRG 450 ==
LOC: SDC 06:22 → SURG A 15:04 → OBSVTOIN 04-08 07:46
PROVIDERS: ADMIT Surgery; ATTEND Surgery
PROC: XRGD0R7 Fusion of Lumbosacral Joint using Custom-Made Anatomically Designed Interbody Fusion Device, Open Approach, New Technology Group 7 (ICD-10-PCS; principal; 2024-04-07)
PROC: 0SB40ZZ Excision of Lumbosacral Disc, Open Approach (ICD-10-PCS; 2024-04-07)
PROC: 01NB0ZZ Release Lumbar Nerve, Open Approach (ICD-10-PCS; 2024-04-07)
PROC: 01NR0ZZ Release Sacral Nerve, Open Approach (ICD-10-PCS; 2024-04-07)
PROC: 3E033XZ Introduction of Vasopressor into Peripheral Vein, Percutaneous Approach (ICD-10-PCS; 2024-04-07)
DX: M48.061 Spinal stenosis, lumbar region without neurogenic claudication (principal); M43.06 Spondylolysis, lumbar region; M51.16 Intervertebral disc disorders with radiculopathy, lumbar region; Z98.890 Other specified postprocedural states; S00.81XA Abrasion of other part of head, initial encounter; G89.18 Other acute postprocedural pain; M51.17 Intervertebral disc disorders with radiculopathy, lumbosacral region; E66.9 Obesity, unspecified; M85.80 Other specified disorders of bone density and structure, unspecified site; E11.9 Type 2 diabetes mellitus without complications; Z68.33 Body mass index [BMI] 33.0-33.9, adult
CPT/HCPCS: 36415; 80048; 85025; A4314; A6258; C1713; C1889; J0690; J1100; J1171; J1885; J2405; J2704; J3010; J3370; J7030

== ENCOUNTER 2025-02-02 07:59 | Outpatient (CLI) | payer MEDICARE | END 2025-02-02 08:00 | disposition home or self-care (01) | LOC: BICMAMMO 07:59 | PROVIDERS: ATTEND Physician Assistant | DX: Z12.31 Encounter for screening mammogram for malignant neoplasm of breast (principal) | CPT/HCPCS: 77063; 77067 ==